=== PATIENT | male | born 1945 | race American Indian/Alaskan Native ===

== ENCOUNTER 2022-08-04 02:45 | Emergency (ER) | payer MEDICARE ==
[~2022-08-04] VITALS: Ht 180.3 cm; Wt 80.5 kg
[2022-08-04 04:24] VITALS: BP 141/73
== END 2022-08-04 04:25 | disposition home or self-care (01) ==
LOC: ER 02:45
DX: F41.9 Anxiety disorder, unspecified (principal); E11.9 Type 2 diabetes mellitus without complications; F17.200 Nicotine dependence, unspecified, uncomplicated; F12.90 Cannabis use, unspecified, uncomplicated; Z88.5 Allergy status to narcotic agent
CPT/HCPCS: 93005; 99283